=== PATIENT | male | born 1970 | race Caucasian/White ===

== ENCOUNTER 2017-11-05 11:30 | Emergency (ER) | payer SELFPAY ==
[2017-11-05 11:33] VITALS: BP 122/85; PULSE 90; RESP 16; TEMP 36.7; O2SAT 97
--- NOTE | 2017-11-05 12:11 | ED.GENADUL ---
Disposition Clinical Impression: Dental infection Disposition: HOME Condition: Fair Instructions: Dental Abscess (ED) Additional Instructions: Encourage hydration. Tylenol and/or ibuprofen as needed for discomfort. Please take antibiotics as prescribed. Even if symptoms improve please take the entire course. Please follow up with dentist as symptoms are likely to recur without definitive care. If you develop fever/chills, increased swelling or other new/worsening symptoms please seek care urgently once again. Prescriptions: Amoxicillin 875/Clav. 125 [Augmentin 875-125 Tablet] 1 each PO BID #14 tab Medical Decision Making - Medical Decision Making Patient presents today with chief complaint of dental pain after fracturing tooth. Patient reports that he had acute discomfort with this seemed to have subsided. However, he has had progressively increasing dental discomfort over the past 3 days. Given the swelling, facial swelling and erythema on the buccal side of the gum line, I am concerned for acute dental infection. I do not palpate abscess, I do not feel that there is acute area to drain. He iwll be placed on Augmentin. Encouraged hydration. Discussed care of infection and OTC options for pain management. Dental list was given, he and his will contact dentist today. We discussed that he will need definitive care to prevent recurrence. We discussed new/worsening symptoms and when to seek care urgently once again. All of his questions and concerns were addressed, they are in agreement with this plan. History of Present Illness - General Chief complaint: DentalOral Stated complaint: DENTAL Time Seen by Provider: 11/05/17 12:10 Source: patient, family, RN notes reviewed Mode of arrival: ambulatory Limitations: no limitations - History of Present Illness Initial comments: She is a 47-year-old male, accompanied by his , with chief complaint of right upper dental pain. He reports he shattered my tooth 5 days ago. States that initially his discomfort was quite minimal. However, pain has continued to gradually increase over the past 3 days. Review denies any fevers or chills. He reports that he noted facial swelling near the area of discomfort this morning. Patient does not have a routine dentist. Denies any pain in the ear. - Related Data Multivitamin [Multivitamins] 1 each PO DAILY 09/30/12 Amlodipine Besylate [Norvasc] 5 mg PO DAILY #90 tab-cap 02/20/17 Amoxicillin 875/Clav. 125 [Augmentin 875-125 Tablet] 1 each PO BID #14 tab 11/05/17 Allergies Allergy/AdvReac Type Severity Reaction Status Date / Time No Known Allergies Allergy Unverified 11/05/17 11:39 Review of Systems Constitutional: no symptoms reported. denies: chills, fever Eyes: denies: eye pain, eye discharge ENT: as per HPI Respiratory: no symptoms reported. denies: cough, shortness of breath Cardiovascular: denies: chest pain Gastrointestinal: denies: nausea, vomiting Skin: denies: rash, lesions, change in color Neurological: denies: headache Past Medical History - Past Medical History Medical history: GERD, hypertension - Social History Alcohol use: none Drug use: none General Exam - General Limitations: no limitations General appearance: alert, in no apparent distress - Eye Eye exam: Present: normal apperance - ENT ENT exam: Present: normal orophraynx (uvula is midline. No trismus. No tonsillar swelling. ), mucous membranes moist, TM's normal bilaterally, normal external ear exam. Absent: normal exam (Patinet has fractured #3 with swelling and erythema along the buccal side of the tooth. No pain with palpation of the lingual side. No palpable area of fluctuance. External soft tissue swelling noted. No erythema or discoloroation) - Neck Neck exam: Present: normal inspection. Absent: tenderness, lymphadenopathy - Respiratory Respiratory exam: Present: normal lung sounds bilaterally. Absent: respiratory distress - Cardiovascular Cardiovascular Exam: Present: regular rate, normal rhythm, normal heart sounds - Neurological Exam Neurological exam: Present: alert, normal gait - Psychiatric Psychiatric exam: Present: normal affect, normal mood - Skin Skin exam: Present: warm, dry, normal color Course Vital Signs - 24 hr 11/05/17 11:33 Temperature 36.7 C Pulse 90 Respiratory 16 Rate Blood Pressure 122/85 Pulse Oximetry 97
== END 2017-11-05 12:22 | disposition home or self-care (01) ==
PROVIDERS: Emergency Provider Student in an Organized Health Care Education/Training Program; PCP Family Medicine
DX: K04.7 Periapical abscess without sinus (principal); I10 Essential (primary) hypertension
CPT/HCPCS: 99283

== ENCOUNTER 2018-05-05 10:22 | Emergency (ER) | payer SELFPAY ==
[2018-05-05 10:44] VITALS: BP 144/108; PULSE 70; RESP 12; TEMP 36.7; O2SAT 98
--- NOTE | 2018-05-05 12:10 | W.ED.GENAD ---
Discharge Plan Disposition Patient Disposition: HOME Condition: Stable Discharge Details Chief Complaint: RashLesion Clinical Impression: Contact dermatitis Primary Care Provider: Kymberly Tee ED Provider: Delmy Stuart Home Meds and New Rx's Prescriptions: New prednisone 20 mg tablet 20 mg PO DIRECTED Qty: 12 RF: 0 Continued multivitamin 1 EACH tablet 1 ea PO DAILY RF: 0 amlodipine [Norvasc] 5 mg tablet 5 mg PO DAILY Qty: 90 RF: 4 Discharge Instructions Instructions: Dermatitis (ED) Additional Instructions: Take the steroids until finished. Use zjco-wvc-qkuwryt topical steroid cream such as hydrocortisone twice daily as directed to area. Use Benadryl npec-ama-hbqenjv as needed and directed for itching. Follow-up with your primary care doctor in 1 week for reevaluation and for referral to silk winding machine operator if symptoms do not improve or worsen. Return immediately to the emergency department any worsening or new concerning symptoms. Discharge Data Discharge Physician: Delmy Stuart Medical Decision Making 47-year-old male presents with pruritic rash to bilateral hands for the past 2-1/2 weeks. Patient has contact with cattle, poison niranjan, poison sumac brush/powder. He denies any other new exposures. He denies any known fever. Rash appears excoriated, scaling, erythematous, shiny. Differential diagnosis includes contact dermatitis, eczema, tinea corporis. As he had no relief with antifungal cream, may be more likely contact dermatitis. There is no fever, no associated pain, no evidence of cellulitis so I do not see any indication for antibiotics. Will start a course of oral steroids. Instructed to use topical steroids and p.o. Benadryl to help with itch to prevent secondary bacterial infection. Instructed to wear cotton gloves to help with moisture and to avoid any further contact with possible causes. Instructed to follow-up with primary care doctor for reevaluation and for referral to silk winding machine operator if symptoms do not improve or worsen. HPI General Mode of arrival: ambulatory. Date/Time Provider Initiated Documentation: 05/05/18 10:48. Limitations to Documentation: no limitations. Information obtained by: patient. HPI Narrative: Patient is a 39-year-old male presents with itchy red rash to bilateral hands for the past 2 and half weeks. 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 He states that the rash has spread and become more itchy since then. He denies any relief with antifungal cream or bag balm. He denies any known fever or pain with rash. Related Data Home Medications Medication Instructions Recorded Confirmed multivitamin 1 ea PO DAILY 09/30/12 05/05/18 amlodipine 5 mg tablet 5 mg PO DAILY #90 tab-cap 05/02/18 05/05/18 prednisone 20 mg PO DIRECTED #12 tab 05/05/18 Previous Rx's Medication Instructions Recorded amlodipine 5 mg tablet 5 mg PO DAILY #90 tab-cap 05/02/18 prednisone 20 mg PO DIRECTED #12 tab 05/05/18 Allergies Allergy/AdvReac Type Severity Reaction Status Date / Time No Known Allergies Allergy Unverified 05/05/18 10:48 General Stated Complaint: RashLesion ROSALES: 5 Review of Systems Review of Systems All systems reviewed & are unremarkable except as noted in HPI and below Constitutional Reports as per HPI, Denies chills and Denies fever(s) Eyes Denies blurry vision ENT Denies dizziness, Denies sore throat and Denies throat swelling Cardiovascular Denies chest pain and Denies dyspnea Respiratory Denies cough and Denies dyspnea Gastrointestinal Denies abdominal pain, Denies diarrhea and Denies vomiting Genitourinary Denies hematuria and Denies dysuria Musculoskeletal Denies back pain and Denies numbness Integumentary/Breasts Denies lesions and Reports rash Neurologic Denies dizziness, Denies focal weakness and Denies numbness Allergic/Immunologic Denies throat swelling [facility] Medical History GERD (gastroesophageal reflux disease) (Chronic) HTN (hypertension) (Chronic) Surgical History No significant past surgical history (Acute) Family History Mother Essential hypertension FAMILY HISTORY Heart disease Father Neoplasm Sister No problems noted. Brother No problems noted. Grandfather No problems noted. Grandfather No problems noted. Grandmother No problems noted. Grandmother No problems noted. Son No problems noted. Daughter No problems noted. Exam Const General: cooperative, healthy appearing and no acute distress HENMT Head: normal to inspection Mouth: oral mucosae normal Eyes General: appearance normal, both eyes and all related structures Neck Neck: normal visual inspection Resp Effort & Inspection: normal respiratory effort and able to speak in complete sentences Cardio Rate: regular rate Skin Other: Patches of erythematous, shiny, some circular, excoriated, raised, scaling noted to dorsal hands and medial forearms bilaterally. Neuro General: alert, awake and oriented x3 Motor: muscle tone normal throughout Extrem General: normal to inspection and full ROM Psych Appearance: grossly normal Affect: normal affect Course Vital Signs Temperature 98.1 F 05/05/18 10:44 Pulse 70 05/05/18 10:44 Respiratory Rate 12 05/05/18 10:44 Blood Pressure 144/108 H 05/05/18 10:44 Pulse Oximetry 98 05/05/18 10:44 Temperature 98.1 F 05/05/18 10:44 Temperature Source Temporal Artery Scan 05/05/18 10:44 Pulse 70 05/05/18 10:44 Respiratory Rate 12 05/05/18 10:44 Respiratory Effort Non-Labored 05/05/18 11:02 Blood Pressure 144/108 H 05/05/18 10:44 Blood Pressure Position Sitting 05/05/18 10:44 Pulse Oximetry 98 05/05/18 10:44 Oxygen Delivery Method Room Air 05/05/18 10:44 Oxygen Flow Rate 0 05/05/18 10:44 Pain Level 0 05/05/18 10:44
--- NOTE | 2018-05-05 12:16 | ED.GENADUL_ITS ---
Discharge Plan Disposition Patient Disposition: HOME Condition: Stable Discharge Details Chief Complaint: RashLesion Clinical Impression: Contact dermatitis Primary Care Provider: Kymberly Tee ED Provider: Delmy Stuart Home Meds and New Rx's Prescriptions: New prednisone 20 mg tablet 20 mg PO DIRECTED Qty: 12 RF: 0 Continued multivitamin 1 EACH tablet 1 ea PO DAILY RF: 0 amlodipine [Norvasc] 5 mg tablet 5 mg PO DAILY Qty: 90 RF: 4 Discharge Instructions Instructions: Dermatitis (ED) Additional Instructions: Take the steroids until finished. Use fbqc-svt-xafglch topical steroid cream such as hydrocortisone twice daily as directed to area. Use Benadryl vuqi-dvl-ldwwpxr as needed and directed for itching. Follow-up with your primary care doctor in 1 week for reevaluation and for referral to chair springer if symptoms do not improve or worsen. Return immediately to the emergency department any worsening or new concerning symptoms. Discharge Data Discharge Physician: Delmy Stuart Medical Decision Making 47-year-old male presents with pruritic rash to bilateral hands for the past 2- 1/2 weeks. Patient has contact with cattle, poison niranjan, poison sumac brush/powder. He denies any other new exposures. He denies any known fever. Rash appears excoriated, scaling, erythematous, shiny. Differential diagnosis includes contact dermatitis, eczema, tinea corporis. As he had no relief with antifungal cream, may be more likely contact dermatitis. There is no fever, no associated pain, no evidence of cellulitis so I do not see any indication for antibiotics. Will start a course of oral steroids. Instructed to use topical steroids and p.o. Benadryl to help with itch to prevent secondary bacterial infection. Instructed to wear cotton gloves to help with moisture and to avoid any further contact with possible causes. Instructed to follow-up with primary care doctor for reevaluation and for referral to chair springer if symptoms do not improve or worsen. HPI General Mode of arrival: ambulatory . Date/Time Provider Initiated Documentation: 05/05/18 10:48 . Limitations to Documentation: no limitations . Information obtained by: patient . HPI Narrative: Patient is a 39-year-old male presents with itchy red rash to bilateral hands for the past 2 and half weeks. 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 He states that the rash has spread and become more itchy since then. He denies any relief with antifungal cream or bag balm. He denies any known fever or pain with rash. Related Data Home Medications Medication Instructions Recorded Confirmed multivitamin 1 ea PO DAILY 09/30/12 05/05/18 amlodipine 5 mg tablet 5 mg PO DAILY #90 tab-cap 05/02/18 05/05/18 prednisone 20 mg PO DIRECTED #12 tab 05/05/18 Previous Rx's Medication Instructions Recorded amlodipine 5 mg tablet 5 mg PO DAILY #90 tab-cap 05/02/18 prednisone 20 mg PO DIRECTED #12 tab 05/05/18 Allergies Allergy/AdvReac Type Severity Reaction Status Date / Time No Known Allergies Allergy Unverified 05/05/18 10:48 General Stated Complaint: RashLesion ROSALES: 5 Review of Systems Review of Systems All systems reviewed & are unremarkable except as noted in HPI and below Constitutional Reports as per HPI, Denies chills and Denies fever(s) Eyes Denies blurry vision ENT Denies dizziness, Denies sore throat and Denies throat swelling Cardiovascular Denies chest pain and Denies dyspnea Respiratory Denies cough and Denies dyspnea Gastrointestinal Denies abdominal pain, Denies diarrhea and Denies vomiting Genitourinary Denies hematuria and Denies dysuria Musculoskeletal Denies back pain and Denies numbness Integumentary/Breasts Denies lesions and Reports rash Neurologic Denies dizziness, Denies focal weakness and Denies numbness Allergic/Immunologic Denies throat swelling [facility] Medical History GERD (gastroesophageal reflux disease) (Chronic) HTN (hypertension) (Chronic) Surgical History No significant past surgical history (Acute) Family History Mother Essential hypertension FAMILY HISTORY Heart disease Father Neoplasm Sister No problems noted. Brother No problems noted. Grandfather No problems noted. Grandfather No problems noted. Grandmother No problems noted. Grandmother No problems noted. Son No problems noted. Daughter No problems noted. Exam Const General: cooperative, healthy appearing and no acute distress HENMT Head: normal to inspection Mouth: oral mucosae normal Eyes General: appearance normal, both eyes and all related structures Neck Neck: normal visual inspection Resp Effort & Inspection: normal respiratory effort and able to speak in complete sentences Cardio Rate: regular rate Skin Other: Patches of erythematous, shiny, some circular, excoriated, raised, scaling noted to dorsal hands and medial forearms bilaterally. Neuro General: alert, awake and oriented x3 Motor: muscle tone normal throughout Extrem General: normal to inspection and full ROM Psych Appearance: grossly normal Affect: normal affect Course Vital Signs Temperature 98.1 F 05/05/18 10:44 Pulse 70 05/05/18 10:44 Respiratory Rate 12 05/05/18 10:44 Blood Pressure 144/108 H 05/05/18 10:44 Pulse Oximetry 98 05/05/18 10:44 Temperature 98.1 F 05/05/18 10:44 Temperature Source Temporal Artery Scan 05/05/18 10:44 Pulse 70 05/05/18 10:44 Respiratory Rate 12 05/05/18 10:44 Respiratory Effort Non-Labored 05/05/18 11:02 Blood Pressure 144/108 H 05/05/18 10:44 Blood Pressure Position Sitting 05/05/18 10:44 Pulse Oximetry 98 05/05/18 10:44 Oxygen Delivery Method Room Air 05/05/18 10:44 Oxygen Flow Rate 0 05/05/18 10:44 Pain Level 0 05/05/18 10:44
== END 2018-05-05 12:28 | disposition home or self-care (01) ==
PROVIDERS: Emergency Provider Physician Assistant; PCP Family Medicine
DX: L25.9 Unspecified contact dermatitis, unspecified cause (principal); I10 Essential (primary) hypertension
CPT/HCPCS: 99283

== ENCOUNTER 2018-10-16 11:10 | Outpatient (REF) | payer OTHER, SELFPAY | END 2018-10-16 11:30 | LOC: LBN 11:10 | PROVIDERS: PCP Family Medicine; Visit Provider Family Medicine | DX: M25.561 Pain in right knee (principal); M71.161 Other infective bursitis, right knee | CPT/HCPCS: 87077; 87070; 87186; 87205 ==

== ENCOUNTER 2020-06-03 02:37 | Outpatient (CLI) | payer MEDICAID, SELFPAY ==
[2020-06-03 12:20] LABS: HCT 43.4 % (40.0-50.0); HGB 14.7 g/dL (13.5-17.5); MCH 29.2 pg (27.0-33.0); MCHC 33.9 % (32.0-36.0); MCV 86.1 fL (80-95); MPV 9.6 fL (8.0-11.0); Platelet Count 272 10^3/uL (130-400); RBC 5.04 10^6/uL (4.36-5.78); RDW 12.6 % (11.8-14.1); RDW-SD 39.3 fL; WBC 6.65 10^3/uL (4.4-10.8)
[2020-06-03 12:37] LABS: ALT 61 U/L (16-63); AST 20 U/L (15-37); Albumin 4.3 g/dL (3.4-5.0); Alkaline Phosphatase 71 U/L (46-116); Anion Gap 7.3 mmol/L (3-11); BUN 15 mg/dL (7-18); Bilirubin, Total 0.5 mg/dL (0.2-1.0); CO2 29.7 mmol/L (21.0-32.0); CREATININE 0.9 mg/dL (0.70-1.30); Calcium 9.6 mg/dL (8.5-10.1); Calculated LDL 144 mg/dL (<100); Chloride 104 mmol/L (98-107); Cholesterol 217 mg/dL (<200); Glucose 98 mg/dL (74-106); HDL Cholesterol 45 mg/dL (40-60); Potassium 4.4 mmol/L (3.5-5.1); Sodium 141 mmol/L (136-145); Total Protein 7.3 g/dL (6.4-8.2); Triglyceride 143 mg/dL (<150)
[2020-06-03 12:52] LABS: Uric Acid 6.2 mg/dL (3.5-7.2)
[2020-06-03 16:38] LABS: ESR 4 mm/hr (<or=20)
[2020-06-03 18:20] LABS: PSA, Screening 0.9 ng/mL (0.0-3.5)
== END 2020-06-03 02:38 | disposition home or self-care (01) ==
LOC: LOS 02:38
PROVIDERS: PCP Family Medicine; Visit Provider Family Medicine
DX: I10 Essential (primary) hypertension (principal); K21.9 Gastro-esophageal reflux disease without esophagitis; M25.59 Pain in other specified joint; Z12.5 Encounter for screening for malignant neoplasm of prostate; Z80.42 Family history of malignant neoplasm of prostate
CPT/HCPCS: 36415; 80053; 80061; 84153; 85027; 85652; 84550

== ENCOUNTER 2021-12-04 18:05 | Emergency (ER) | payer MEDICAID, SELFPAY ==
--- OUTSIDE RECORDS SUMMARY | 2021-12-04 18:10 | XMS_ITS | Encounter Summary ---
:1970 Demographics Home Phone Preferred Language Unknown Marital Status Unknown Yazidism Affiliation Unknown Race Unknown Ethnic Group Unknown Author Organization [facility] Address [address] [place] [address] Care Team Providers Name Role Phone Unavailable Primary Care Provider Unavailable Encounter Details Date Type Department Care Team Description 06/03/2020 Lab Requisition [facility] Outr Resulting Lab, Pathology & Laboratory Provider [facility] [address] [place] [address] Social History Tobacco Use Types Packs/Day Years Used Date Never Assessed Sex Assigned at Date Recorded Not on file documented as of this encounter Plan of Treatment Not on filedocumented as of this encounter Procedures Procedure Name Priority Date/Time Associated Comments Diagnosis PSA TOTAL, Routine 06/03/2020 8:13 EDT Results for this DIAGNOSTIC procedure are i n the results section. documented in this encounter Results PSA TOTAL, DIAGNOSTIC (06/03/2020 8:13 EDT) Pathologist Sig nature PSA 0.9 0.0 - 3.5 ng/mL [facility] Specimen Blood - Venous blood (substance) Narrative [facility] - 06/03/2020 18:15 EDT NOTE: Serum PSA concentration should not be in terpreted as absolute evidence for the presence or absence of malignant disease. Assayed on Siemens ADVIA Centaur XPT usi ng chemiluminescent technology.??Values obtained by using different assay methods cannot be used interchangeably. Performing Organization Address City/State/ZIP Code Phon e Number [facility] [address] [place] [address] SERVICES documented in this encounter Visit Diagnoses Not on filedocumented in this encounter
--- OUTSIDE RECORDS SUMMARY | 2021-12-04 18:10 | XMS_ITS | Clinical Summary ---
:1970 Demographics Home Phone Preferred Language Unknown Marital Status Unknown Latter Day Affiliation Unknown Race Unknown Ethnic Group Unknown Author Organization [facility] Address [address] [place] [address] Care Team Providers Name Role Phone Unavailable Primary Care Provider Unavailable Social History Tobacco Use Types Packs/Day Years Used Date Never Assessed Sex Assigned at Date Recorded Not on file Plan of Treatment Not on file
--- OUTSIDE RECORDS SUMMARY | 2021-12-04 18:10 | XMS_ITS | Clinical Summary ---
:1970 Author Organization [facility] [place] [address] Care Team Providers Name Role Phone Kymberly Tee MD Primary Care Provider Allergies No known active allergies Medications Medication Sig Dispensed Refills Start Date End Date Status amLODIPine (Norvasc) 5 TAKE ONE TABLET BY 0 05/21/19 20 Active mg Tablet MOUTH EVERY DAY triamcinolone APPLY TOPICALLY 0 07/02/2019 Active (KENALOG) 0.1 % Cream TWO TIMES A DAY NEEDED FOR CONTACT DERMATITIS Social History Tobacco Use Types Packs/Day Years Used Date Never Smoker Smokeless Tobacco: Never Used Sex Assigned at Date Recorded Not on file Plan of Treatment Health Maintenance Due Date Last Done Comments Covid-19 Vaccine (#1) 1974 HIV screen 10/15/1987 Hepatitis C Screening 10/15/1987 Lipid Screening 10/15/1987 Tdap adult 1988 Tetanus vaccine 1988 Colonoscopy 2014 Zoster vaccine (1 of 2) 10/15/2019 Influenza (Flu) vaccine (1 of 1 - Influenza standard 11/17/2021 series) Insurance Payer Benefit Plan / Subscriber ID Effective Dates Phone Addre ss Type [place] [id number] 2019-Prese [phone] [address] [place], [place] [id number] Care Teams Radiologic Technology Teacher Relationship Specialty Start Date End Date Kymberly Tee MD PCP - General Family Medicine 07/11/[address] [place] [address]
--- OUTSIDE RECORDS SUMMARY | 2021-12-04 18:10 | XMS_ITS | Encounter Summary ---
:1970 Author Organization [facility] [place] [address] Care Team Providers Name Role Phone Kymberly Tee MD Primary Care Provider Reason for Visit Reason Comments Skin Check Consultation (Routine) - Canceled Specialty Diagnoses / Procedures Referred By Contact Refer red To Contact Dermatology Diagnoses Dermatitis, unspecified Eczematous Rash of Both Hands; New Patient-Notes Received Kymberly Tee MD Hammer, Charles J, MD Procedures Consult [address] [place], [place] [address] [address] [place] [address] Phone: Fax: Referral ID Status Reason Start Date Expiration Date Visits V isits Requested Authorized [id number] Canceled Consult, 08/19/2019 08/18/2020 6 6 Test & Treat Encounter Details Date Type Department Care Team Description 08/29/2019 Office Visit Dermatology at [facility] Rex Herrmann MD Hand dermatitis [address] [facility] [place] [address] [place] [address] [phone] (Wo rk) Social History Tobacco Use Types Packs/Day Years Used Date Never Smoker Smokeless Tobacco: Never Used Sex Assigned at Date Recorded Not on file documented as of this encounter Progress Notes Rex Herrmann MD - 08/29/2019 3:30 PM EDT Problem: Hand dermatitis 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 He has developed over the last year a problem with the rash only involves the dorsum of his hands. If he gets his hands into oils grease his gasoline or toxic clean laundry soap his hands will swell up and be red and quite itchy for a few days. They improvedwith prednisone and triamcinolone cream topically, however the treat the prednisone makes him feel hyper and had difficulty sleeping with it he does not want to take it any longer. If he uses Jacqueline or Ivory soap he is fine. If he is careful about keeping his hands away from these known precipitants, he does not have flares. Or only infrequently will have flares. Physical examination reveals a pleasant 48-year-old gentleman who has some residual patchy erythema and hyperkeratosis present over the dorsal hands and fingers from his last episode. The palmar hands are uninvolved. He does have some extension dorsally over the wrist but only minimally onto the distal forearm. He has no dermatitis and no history of dermatitis on the legs the arms face chest or back. Assessment and plan: Suspect allergic contact hand dermatitis to workplace contactants 1. Would recommend that the patient be seen at [facility] by Dr. Gerard for patch testing. Will initiate consultation today. Patient is interested in following up on this. 2. For now continue to be careful about avoiding known precipitants. Discussed with patient the patch test process. 3. Patient has difficulty wearing gloves at work because they are so readily damaged and shredded. 4. For mild flare may use triamcinolone 0.1% cream. Cc: Julia Gerard MD documented in this encounter Plan of Treatment Not on filedocumented as of this encounter Visit Diagnoses Diagnosis Hand dermatitis Contact dermatitis and other eczema, due to unspecified cause documented in this encounter Care Teams Mirror Machine Feeder Relationship Specialty Start Date End Date Kymberly Tee MD PCP - General Family Medicine 07/11/[address] [place] [address] documented as of this encounter
[2021-12-04 18:21] VITALS: BP 154/103; PULSE 101; RESP 18; TEMP 37; O2SAT 98
--- NOTE | 2021-12-04 19:15 | DI.RAD_ITS ---
Exam(s) XR ELBOW LT COMPLETE EXAM: XR ELBOW LT COMPLETE CLINICAL HISTORY: Swelling. TECHNIQUE: 2D digital imaging was performed. Three views. COMPARISON: No exams were available for comparison FINDINGS: BONES: No acute fracture is present. No bony destructive lesion is seen. JOINTS: The elbow is normally aligned. No joint effusion is seen. SOFT TISSUE: Soft tissue swelling posterior to the olecranon. No abnormal gas collection. There is a metallic foreign body seen at the mid forearm level in the lateral soft tissues. IMPRESSION: Soft tissue swelling posterior to the olecranon. No fracture or bony erosion. DATA REPOSITORY: RADIATION DOSE DELIVERED:
--- NOTE | 2021-12-04 19:23 | W.ED.GENAD ---
Discharge Plan Disposition Patient Disposition: HOME Condition: Stable Discharge Details Clinical Impression: Bursitis of left elbow Primary Care Provider: Arsalan Hines ED Provider: Beronica Trevizo Home Meds and New Rx's Prescriptions: New cephalexin 500 mg tablet 500 mg PO BID 7 Days Qty: 14 0RF Continued multivitamin 1 EACH tablet 1 ea PO DAILY triamcinolone acetonide 0.1 % cream 1 applic TP BID PRN (Reason: contact dermatitis) Qty: 453.6 2RF esomeprazole magnesium 20 mg capsule,delayed release(DR/EC) 20 mg PO DAILY Qty: 90 3RF amlodipine 10 mg tablet 10 mg PO DAILY Qty: 90 3RF Discharge Instructions Instructions: Elbow Bursitis (ED) Additional Instructions: Wear Sebastian wrap daily. He may take it off at night. Take the antibiotics twice daily with food as directed. Take the pain medication as directed with food it may make you sleepy no operating heavy machinery. Rest ice compression elevation. Please follow-up with orthopedics within the next 1 to 2 weeks. Return to the ER for any worsening redness, fever chills or any concerns. Please take Tylenol or Ibuprofen with food every 4-6 hours as needed for pain and swelling. Referrals: Arsalan Hines NP [Primary Care Provider] - Obed Peoples MD [ [facility] STAFF PHYSICIAN] - 1 week Medical Decision Making 51-year-old male presents to the ER with a chief complaint of left elbow redness and swelling which he reports occurred proximately 3 days ago. He denies any known trauma. He states the first 1 to 2 days it was much more swollen and he had a difficult time moving his elbow however that is improved. It is tender to the touch, erythemic and warm. He does have full range of motion noted to his elbow. He denies any previous episodes of this type. He has been taking ibuprofen last few hours prior to arrival. Past medical history includes GERD and hypertension. Labs, x-ray ordered. We will plan on placing patient on cephalexin and Sebastian wrap with follow-up with orthopedics. CBC shows no leukocytosis, lactate within normal limits 1.3, CMP largely within normal limits, uric acid also within normal limits 4.6 Patient was given a gram of Rocephin here in the ER I will plan to place him on cephalexin. He was placed on the orthopedic follow-up list for follow-up. Patient declining Oxycodone at this time. He will take Tylenol or Ibuprofen. Patient discharged with follow-up care and antibiotics. This text was generated using Strap dictation system, please disregard any oddities of phrase or misspellings. Medical Records Medical records reviewed: Yes I reviewed the patient's medical records. Imaging Data Radiologic Study: Imaging: X-Ray Radiologist's impression: Imaging protocol: Radiologic exam of the Left elbow. Views: 3 or more views. COMPARISON: No relevant prior studies available. FINDINGS: Bones/joints: No suspicious osseous lytic or blastic lesion. No suspicious osseous lytic or blastic lesion. No acute fracture or dislocation. No significant joint effusion. Soft tissues: There is dorsal soft tissue edema centered over the olecranon process. Linear hyperdensity measuring 7 mm in length and 2 mm in width projects within the deep lateral soft tissues of the proximal to mid forearm. IMPRESSION: 1. No acute fracture or dislocation. 2. Dorsal soft tissue edema centered over the olecranon process. 3. Linear 7 mm x 2 mm hyperdensity within the deep lateral soft tissues of the proximal to mid forearm. Correlate for history of penetrating trauma for retained foreign body. Thank you for allowing us to participate in the care of your patient. Dictated and Authenticated by: Victor M Bingham MD Lab Data Lab results reviewed: Yes I reviewed the patient's lab results. Labs: Laboratory Tests Range/Units 12/04/21 12/04/21 12/04/21 19:45 19:45 19:45 WBC (4.4-10.8) 10^3/uL 10.27 RBC (4.36-5.78) 10^6/uL 4.57 Hgb (13.5-17.5) g/dL 13.6 Hct (40.0-50.0) % 39.9 L MCV (80-95) fL 87 MCH (27.0-33.0) pg 29.8 MCHC (32.0-36.0) % 34.1 RDW (11.8-14.1) % 12.0 Plt Count (130-400) 10^3/uL 295 MPV (8.0-11.0) fL 9.5 Immature Gran % 0.3 Neutrophils % 62.1 Lymphocytes % 21.2 Monocytes % 11.8 Eosinophils % 4.1 Basophils % 0.5 Nucleated RBC % (0.0-0.3) % 0.0 Absolute Neutrophils (1.2-6.7) 10^3/uL 6.38 Absolute Lymphocytes (1.2-3.4) 10^3/uL 2.18 Absolute Monocytes (0.1-0.8) 10^3/uL 1.21 H Absolute Eosinophils (0.0-0.7) 10^3/uL 0.42 Absolute Basophils (0.0-0.2) 10^3/uL 0.05 VBG Lactate (0.6-1.4) mmol/L 1.3 Sodium (136-145) mmol/L 140 Potassium (3.5-5.1) mmol/L 3.7 Chloride (98-107) mmol/L 102 Carbon Dioxide (21.0-32.0) mmol/L 29.3 Anion Gap (3-11) mmol/L 8.7 BUN (7-18) mg/dL 16 Creatinine (0.70-1.30) mg/dL 1.0 Est GFR (CKD-EPI 2020) (mL/min/1.73m2) 90.56 Glucose (74-106) mg/dL 124 H Uric Acid (3.5-7.2) mg/dL 4.6 Calcium (8.5-10.1) mg/dL 9.1 Magnesium (1.8-2.4) mg/dL 2.1 Total Bilirubin (0.2-1.0) mg/dL 0.3 AST (15-37) U/L 14 L ALT (16-63) U/L 31 Alkaline Phosphatase (46-116) U/L 84 Total Protein (6.4-8.2) g/dL 8.0 Albumin (3.4-5.0) g/dL 4.0 HPI General Mode of arrival: ambulatory. Date/Time Provider Initiated Documentation: 12/04/21 18:14. Limitations to Documentation: no limitations. Information obtained by: patient, RN notes reviewed and old records reviewed. HPI Narrative: 51-year-old male presents to the ER with a chief complaint of left elbow redness and swelling which he reports occurred proximately 3 days ago. He denies any known trauma. He states the first 1 to 2 days it was much more swollen and he had a difficult time moving his elbow however that is improved. It is tender to the touch, erythemic and warm. He does have full range of motion noted to his elbow. He denies any previous episodes of this type. He has been taking ibuprofen last few hours prior to arrival. Past medical history includes GERD and hypertension. Related Data Home Medications Medication Instructions Recorded Confirmed multivitamin 1 ea PO DAILY 09/30/12 12/04/21 triamcinolone acetonide 0.1 % 1 applic topical BID PRN contact 06/10/21 12/04/21 topical cream dermatitis #453.6 grams esomeprazole magnesium 20 mg 20 mg PO DAILY #90 caps 08/16/21 12/04/21 capsule,delayed release amlodipine 10 mg tablet 10 mg PO DAILY #90 tabs 10/26/21 12/04/21 cephalexin 500 mg tablet 500 mg PO BID 7 days #14 tabs 12/04/21 Previous Rx's Medication Instructions Recorded triamcinolone acetonide 0.1 % 1 applic topical BID PRN contact 06/10/21 topical cream dermatitis #453.6 grams esomeprazole magnesium 20 mg 20 mg PO DAILY #90 caps 08/16/21 capsule,delayed release amlodipine 10 mg tablet 10 mg PO DAILY #90 tabs 10/26/21 cephalexin 500 mg tablet 500 mg PO BID 7 days #14 tabs 12/04/21 Allergies Allergy/AdvReac Type Severity Reaction Status Date / Time No Known Allergies Allergy Verified 12/04/21 18:25 General Stated Complaint: Cellulitis ROSALES: 3 Review of Systems All systems reviewed & are unremarkable except as noted in HPI and below Musculoskeletal Musculoskeletal: Reports as per HPI, Reports arthralgias and Reports joint swelling PFSH All Active Problems (Updated 12/04/21 @ 20:18 by Beronica Trevizo NP) Bursitis of left elbow (Acute) Essential hypertension (Acute) Sciatic leg pain (Acute) Eczema of both hands (Acute) Gastroesophageal reflux disease (Acute 05/20/12) 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 Brother No problems noted. Grandfather No problems noted. Grandfather No problems noted. Grandmother No problems noted. Grandmother No problems noted. Son No problems noted. Daughter No problems noted. Social History Smoking/Tobacco Use Status: Never Second Hand Exposure: Yes Smoking risk assessment performed?: Yes Alcohol Intake: former Drug use: Never Substance use type: does not use Household members: spouse Housing: house Communication Needs: Hard of Hearing Do you need help understanding health information?: Often Pets and animals: Yes Pets and animals: dog(s) and horse(s) Sexually active: Yes Do you think of yourself as: straight/heterosexual Current gender identity: male What is your relationship status?: How often do you talk on the phone with friends or family?: three or more times per week How often do you get together with friends or relatives?: once per week How often do you attend methodist or mormon services?: decline to answer Do you belong to any clubs or organized social groups?: no Panel score (0-1 are the most socially isolated patients): 2 Taya/Scientology: No preference Special taya needs: No Seatbelt use: sometimes Helmet use: Yes Helmet use: always Drive intox or ride w/intox driver's license examiner: No Do you feel safe at home: Yes Do you feel safe in your relationship?: Yes Exam Extrem Left upper extremity: elbow/forearm Details: tenderness, swelling and warmth Shoulder/upper arm images: 1. Swelling over the dorsal sac, no obvious abrasion or puncture wound. Course Vital Signs Vital signs: Vital Signs Temperature 37 C 12/04/21 18:21 Pulse 101 H 12/04/21 18:21 Respiratory Rate 18 12/04/21 18:21 Blood Pressure 154/103 H 12/04/21 18:21 Pulse Oximetry 98 12/04/21 18:21 Temperature 37 C 12/04/21 18:21 Temperature Source Temporal Artery Scan 12/04/21 18:21 Pulse 101 H 12/04/21 18:21 Respiratory Rate 18 12/04/21 18:21 Respiratory Effort Non-Labored 12/04/21 18:26 Blood Pressure 154/103 H 12/04/21 18:21 Blood Pressure Position Sitting 12/04/21 18:21 Pulse Oximetry 98 12/04/21 18:21 Oxygen Delivery Method Room Air 12/04/21 18:21 Oxygen Flow Rate 0 12/04/21 18:21
[2021-12-04 19:47] LABS: Lactate 1.3 mmol/L (0.6-1.4)
[2021-12-04 19:48] LABS: Abs Immature Grans 0.03 10^3/uL (0.0-0.06); Absolute Basophil Count 0.05 10^3/uL (0.0-0.2); Absolute Eosinophil Count 0.42 10^3/uL (0.0-0.7); Absolute Lymphocyte Count 2.18 10^3/uL (1.2-3.4); Absolute Monocyte Count 1.21 10^3/uL (0.1-0.8); Absolute Neutrophil Count 6.38 10^3/uL (1.2-6.7); Basophils % 0.5; Eosinophils % 4.1; HCT 39.9 % (40.0-50.0); HGB 13.6 g/dL (13.5-17.5); Immature Grans % 0.3; Lymphocytes % 21.2; MCH 29.8 pg (27.0-33.0); MCHC 34.1 % (32.0-36.0); MCV 87 fL (80-95); MPV 9.5 fL (8.0-11.0); Monocytes % 11.8; Neutrophils % 62.1; Platelet Count 295 10^3/uL (130-400); RBC 4.57 10^6/uL (4.36-5.78); RDW-SD 38.6 fL; WBC 10.27 10^3/uL (4.4-10.8)
[2021-12-04] MEDS: cefTRIAXone 1 GM/50 ML BAG IVPB (19:51)
[2021-12-04 20:10] LABS: ALT 31 U/L (16-63); AST 14 U/L (15-37); Alkaline Phosphatase 84 U/L (46-116); Anion Gap 8.7 mmol/L (3-11); BUN 16 mg/dL (7-18); Bilirubin, Total 0.3 mg/dL (0.2-1.0); CO2 29.3 mmol/L (21.0-32.0); Calcium 9.1 mg/dL (8.5-10.1); Chloride 102 mmol/L (98-107); Estimated GFR 90.56 (mL/min/1.73m2); Glucose 124 mg/dL (74-106); Magnesium 2.1 mg/dL (1.8-2.4); Potassium 3.7 mmol/L (3.5-5.1); Sodium 140 mmol/L (136-145); Uric Acid 4.6 mg/dL (3.5-7.2)
--- NOTE | 2021-12-04 20:11 | DI.VRAD_ITS ---
PROCEDURE INFORMATION: Exam: XR Left Elbow Exam date and time: 12/04/2021 7:35 PM Age: 51 years old Clinical indication: Swelling; Elbow; Bilateral; Additional info: Swelling, redness, warmth near elbow TECHNIQUE: Imaging protocol: Radiologic exam of the Left elbow. Views: 3 or more views. COMPARISON: No relevant prior studies available. FINDINGS: Bones/joints: No suspicious osseous lytic or blastic lesion. No suspicious osseous lytic or blastic lesion. No acute fracture or dislocation. No significant joint effusion. Soft tissues: There is dorsal soft tissue edema centered over the olecranon process. Linear hyperdensity measuring 7 mm in length and 2 mm in width projects within the deep lateral soft tissues of the proximal to mid forearm. IMPRESSION: 1. No acute fracture or dislocation. 2. Dorsal soft tissue edema centered over the olecranon process. 3. Linear 7 mm x 2 mm hyperdensity within the deep lateral soft tissues of the proximal to mid forearm. Correlate for history of penetrating trauma for retained foreign body. Dictated and Authenticated by: Victor M Bingham MD. Ordering:SANDEE Loco MD
[2021-12-04] MEDS: Cephalexin 500 MG CAP, 2 CAPS/BTL PO (20:31)
== END 2021-12-04 20:51 | disposition home or self-care (01) ==
PROVIDERS: Emergency Provider Registered Nurse Emergency; PCP Nurse Practitioner Family
DX: M70.32 Other bursitis of elbow, left elbow (principal); I10 Essential (primary) hypertension; Z77.22 Contact with and (suspected) exposure to environmental tobacco smoke (acute) (chronic)
CPT/HCPCS: 80053; 96365; 99284; 73080; 83605; 83735; 84550; 85025; 99283; J0696

== ENCOUNTER 2022-06-23 02:04 | Outpatient (CLI) | payer MEDICAID, SELFPAY ==
[2022-06-23 12:25] LABS: Anion Gap 8.2 mmol/L (3-11); BUN 22 mg/dL (7-18); CO2 30.8 mmol/L (21.0-32.0); Calcium 9.4 mg/dL (8.5-10.1); Calculated LDL 131 mg/dL (<100); Chloride 104 mmol/L (98-107); Cholesterol 210 mg/dL (<200); Estimated GFR 90.56 (mL/min/1.73m2); Glucose 112 mg/dL (74-106); HDL Cholesterol 50 mg/dL (40-60); Potassium 3.8 mmol/L (3.5-5.1); Sodium 143 mmol/L (136-145); Triglyceride 146 mg/dL (<150)
[2022-06-24 12:58] LABS: HIV-1/2 Ag & Ab Screen Negative (Negative)
[2022-06-25 13:24] LABS: PSA, Screening 0.5 ng/mL (<=3.5)
[2022-06-26 10:03] LABS: Hepatitis C Ab w Rflx HCV PCR Negative (Negative)
== END 2022-06-23 02:05 | disposition home or self-care (01) ==
LOC: LOS 02:04
PROVIDERS: PCP Nurse Practitioner Family; Visit Provider Nurse Practitioner Family
DX: K22.0 Achalasia of cardia (principal); Z11.59 Encounter for screening for other viral diseases; Z12.5 Encounter for screening for malignant neoplasm of prostate
CPT/HCPCS: 36415; 80048; 80061; 84153; 86803; 87389

== ENCOUNTER 2023-06-22 12:10 | Outpatient (REF) | payer SELFPAY ==
--- NOTE | 2023-06-22 11:18 | SKI_PTH ---
PATIENT: Minh Collier LOC: [facility] U#:[id number] AGE/SX: 52/M ROOM: RE06/22/[address]: ENA Diez : 1970 BED: DIS: 06/22/2023 SPEC #: [id number] RECD: 06/22/23 18:42 STATUS: ROX REConcepción #: [id number] LOREN: 06/22/23 11:[address]: Nemesio Fisher DEPT: Surgical Specimen RECD BY: Grecia Almaraz ENTERED: 06/22/23 18:42 SP TYPE: PRO ALTMAN DR: Arsalan Hines, SOLAR PROCESS ENGINEER Tissues: 1 - SKIN BIOPSY(SHAVE/PUNCH) Procedures: SKIN LEVEL 4 Comments: [id number]
== END 2023-06-22 12:11 | disposition home or self-care (01) ==
LOC: LBN 12:10
PROVIDERS: PCP Nurse Practitioner Family; Referring Provider Nurse Practitioner Family; Visit Provider Physician Assistant
DX: L28.2 Other prurigo (principal); L30.8 Other specified dermatitis
CPT/HCPCS: 88305